=== PATIENT | male | born 1960 | race African-American/Black ===

== ENCOUNTER 2016-09-22 11:19 | Emergency (ER) | payer OTHER ==
[~2016-09-22 11:19] MED LIST: Iopamidol 370 76% 100 ML VIAL ONE
[2016-09-22] MEDS ORDERED: Fentanyl 100 MCG/2 ML VIAL ONE (11:31)
[2016-09-22] MEDS ORDERED: Ondansetron HCl/PF 4 MG/2 ML Vial ONE (11:46)
[2016-09-22] MEDS ORDERED: Lidocaine Viscous Sol 2% 15 ml UD Cup ONE (11:46)
[2016-09-22] MEDS ORDERED: Mag-Al Plus 1200 MG/1200 MG/120 MG/30 ML UDCUP ONE (11:46)
[2016-09-22 11:56] LABS: #Basophils 0.1 thou/uL (0.0-0.2); #Eosinphils 0.1 thou/uL (0.0-0.7); #Monocytes 0.4 thou/uL (0.11-0.59); #Neutrophils 4.3 thou/uL (1.40-6.50); %Basophils 1.3 % (0.0-1.0); %Eosinophils 0.7 % (0.0-10.0); %Lymphocytes 29.4 % (21.0-51.0); %Monocytes 6.4 % (0.0-10.0); %Neutrophils 62.3 % (42.0-75.0); Hemoglobin 14.9 g/dL (14.0-18.0); Mean Corpuscular Hemoglobin 28.2 pg (27.0-31.0); Mean Corpuscular Volume 88.1 fl (80.0-94.0); Mean Platelet Volume 6.9 fL (7.4-10.4); Platelet Count 292 thou/uL (130-400); RBC Distribution Width 14.6 % (11.5-14.5); Red Blood Cell (RBC) Count 5.29 mill/uL (4.70-6.10)
[2016-09-22] MEDS ORDERED: Promethazine HCl 25 MG/ML VIAL ONE (11:56)
[2016-09-22 11:57] LABS: ALT (SGPT) 15 U/L (8-55); AST (SGOT) 10 U/L (5-34); Albumin 3.5 g/dL (3.5-5.0); Alkaline Phosphatase 58 U/L (40-150); Anion Gap 15 mmol/L (10-20); BUN (Urea Nitrogen) 14 mg/dL (8.4-25.7); Bilirubin, Total 0.7 mg/dL (0.2-1.2); CKMB 1.8 ng/mL (0-6.6); Calc. Creatinine Clearance 0 mL/min (70-130); Calcium 8.6 mg/dL (7.8-10.44); Carbon Dioxide 21 mmol/L (22-29); Chloride 109 mmol/L (98-107); Estimated GFR-MDRD 75; Globulin 3.2 g/dL (2.4-3.5); Glucose 120 mg/dL (70-105); Lipase 5 U/L (8-78); Potassium 3.9 mmol/L (3.5-5.1); Protein, Total 6.7 g/dL (6.0-8.3); Sodium 141 mmol/L (136-145); Troponin I 0.013 ng/mL (< 0.028)
--- NOTE | 2016-09-22 21:51 | CT ---
CT ABDOMEN AND PELVIS WITH CONTRAST 09/22/[address] of the abdomen and pelvis was done for evaluation of periumbilical pain. Axial slices were acquired after giving IV contrast. No oral contrast was given. The lung bases are clear. The liver, spleen, pancreas, gallbladder, adrenal glands, kidneys, and abd ominal aorta all appeared normal. There is no distention of bowel to suggest obstruction. At most, one might wonder about some slight thickening of some of the loops of proximal jejunum, but this is a marginal finding at best. This co uld be normal in this patient or could be a sign of mild enteritis. No inflammatory changes are seen around bowel. No free air or free fluid was seen. CT of the pelvis shows no pelvic masses, fluid collections or inflammatory changes. Degenerative joe nges are seen in the lumbar spine which become increasing severe inferiorly. The last few disc level s are degenerated and have some disc osteophyte complex findings. IMPRESSION: No definite acute findings. At most, perhaps minimal prominence of the fold/wall thickness of a few loops of proximal jejunum, a nonspecific finding. POS: HOME
== END 2016-09-22 14:03 | disposition home or self-care (01) ==
LOC: BURERS 11:19
DX: R10.33 Periumbilical pain (principal); I10 Essential (primary) hypertension
CPT/HCPCS: 36416; 74177; 80053; 82553; 83605; 83690; 84484; 85025; 93005; 96365; 96375; 36415-59; J2405; J2550; J3010

== ENCOUNTER 2017-03-29 13:37 | Emergency (ER) | payer OTHER | END 2017-03-29 14:15 | disposition home or self-care (01) | LOC: BURERS 13:37 | DX: M25.561 Pain in right knee (principal); G89.29 Other chronic pain; I10 Essential (primary) hypertension; F20.9 Schizophrenia, unspecified | CPT/HCPCS: 99283 ==

== ENCOUNTER 2020-03-18 16:10 | Emergency (ER) | payer OTHER ==
[2020-03-18] MEDS ORDERED: Diazepam 10 MG/2 ML SYRINGE ONE (16:57)
[2020-03-18] MEDS ORDERED: Ondansetron PF 4 MG/2 ML Vial ONE (16:58)
[2020-03-18] MEDS ORDERED: Morphine 4 MG/ML VIAL ONE (16:58)
[2020-03-18 17:23] LABS: #Basophils 0.1 thou/uL (0.0-0.2); #Lymphocytes 2.2 thou/uL (1.20-3.40); #Monocytes 0.9 thou/uL (0.11-0.59); #Neutrophils 6.8 thou/uL (1.40-6.50); %Basophils 1.2 % (0.0-1.0); %Lymphocytes 21.9 % (21.0-51.0); %Monocytes 9.1 % (0.0-10.0); %Neutrophils 67.8 % (42.0-75.0); Hemoglobin 15.8 g/dL (14.0-18.0); Mean Corpuscular HGB CONC 31.8 g/dL (32.0-36.0); Mean Corpuscular Volume 88.2 fL (78.0-98.0); Mean Platelet Volume 8.4 fL (7.4-10.4); Platelet Count 247 thou/uL (130-400); RBC Distribution Width 13.6 % (11.5-14.5); Red Blood Cell (RBC) Count 5.65 mill/uL (4.70-6.10)
[2020-03-18 17:26] LABS: ALT (SGPT) 24 U/L (8-55); AST (SGOT) 13 U/L (5-34); Albumin 4.3 g/dL (3.5-5.0); Alkaline Phosphatase 67 U/L (40-110); Anion Gap 17 mmol/L (10-20); BUN (Urea Nitrogen) 14 mg/dL (8.4-25.7); Bilirubin, Total 1.1 mg/dL (0.2-1.2); CK (CPK) 239 U/L (30-200); Calc. Creatinine Clearance 0 mL/min (70-130); Calcium 9.2 mg/dL (7.8-10.44); Carbon Dioxide 27 mmol/L (22-29); Chloride 99 mmol/L (98-107); Globulin 4.1 g/dL (2.4-3.5); Glucose 105 mg/dL (70-105); Lipase 41 U/L (8-78); Potassium 3.4 mmol/L (3.5-5.1); Protein, Total 8.4 g/dL (6.0-8.3); Sodium 140 mmol/L (136-145)
[2020-03-18 17:42] LABS: CKMB 2.9 ng/mL (0-6.6)
[2020-03-18] MEDS ORDERED: Nitroglycerin 0.4 MG TAB 1 EACH ONE (17:48)
[2020-03-18] MEDS ORDERED: Phentolamine Mesylate 5 MG VIAL ONE (18:42)
[2020-03-18] MEDS ORDERED: Aspirin Chewable 81 MG TAB ONE (18:42)
[2020-03-18] MEDS ORDERED: Lorazepam 2 MG/ML VIAL ONE (18:48)
[2020-03-18] MEDS ORDERED: niCARdipine 20MG In NaCl 20 MG/200 ML BAG ONE (19:03)
--- NOTE | 2020-03-18 19:40 | CT ---
CTA AORTIC DISSECTION WITH CONTRAST: Date: 03-18-[address] of the chest, abdomen and pelvis was done after a bolus of IV contrast using an aortic diss ection protocol. This scan covered the area from the lung apices through the bifurcation of the aorta and bifurcation of the iliac arteries. FINDINGS: CT THORAX There is moderate opacification of the thoracic aorta and good opacification of the abdominal aorta a nd iliac arteries. There is no sign of aortic dissection or aneurysm at any level. There is good opac ification of the pulmonary arteries with no filling defects to suggest emboli. Some coronary artery c alcifications are noted in the chest. No mediastinal mass or adenopathy was seen. Some calcified subc arinal nodes are evident. The lungs are clear with no acute infiltrate or effusions seen, aside from some dependent atelectasis. CT OF THE ABDOMEN AND PELVIS: No sign of dissection or aneurysm in the aorta. There does appear to be some stenosis due to plaque a t the origin of the celiac artery. The SMA and EVY both fill normally. A little bit of plaque is seen at the origin of the left renal artery, but there is probably not much stenosis here. The iliac dinorah johnathon fill well, though there is plaque in each of them. The bifurcation of each iliac artery into int ernal and external segments was unremarkable. The liver, spleen, pancreas, adrenal glands, kidneys, and gallbladder were unremarkable in appearance . The visualized portions of bowel showed no distention, wall thickening, or inflammatory changes. No free air or free fluid was seen in the areas scanned. There are extensive degenerative changes in the lumbar spine. Especially at L5-S1, there is some mode rate central canal stenosis due to a little central bulging of the disc plus ligamentous and facet hy pertrophy. IMPRESSION: 1. No evidence of aortic dissection or aneurysm. 2. No evidence of pulmonary embolism. 3. Lungs clear. 4. Coronary arterial sclerosis. 5. 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 6. Degenerative change in the lumbar spine with spinal stenosis evident, particularly at L5-S1. Findings called to Dr. Mueller at 1810 on 03-18-2020. POS: HOME
== END 2020-03-18 19:18 | disposition short-term general hospital (02) ==
LOC: BURERS 16:10
DX: I16.1 Hypertensive emergency (principal); F14.10 Cocaine abuse, uncomplicated; R77.8 Other specified abnormalities of plasma proteins; I10 Essential (primary) hypertension
CPT/HCPCS: 36415; 71275; 74174; 80053; 82550; 82553; 83690; 84484; 85025; 93005; 96374; 96375; J2060; J2270; J2405; J2760; J3360; Q9967

== ENCOUNTER 2023-03-01 11:59 | Emergency (ER) | payer OTHER ==
[2023-03-01] MEDS ORDERED: Iopamidol 370 76% 100 ML VIAL ONE (12:05)
[2023-03-01 12:24] LABS: #Basophils 0.1 thou/uL (0.0-0.2); #Eosinphils 0.2 thou/uL (0.0-0.7); #Lymphocytes 2.4 thou/uL (1.20-3.40); #Monocytes 0.5 thou/uL (0.11-0.59); #Neutrophils 3.2 thou/uL (1.40-6.50); %Basophils 1.2 % (0.0-1.0); %Eosinophils 3.6 % (0.0-10.0); %Lymphocytes 36.8 % (21.0-51.0); %Monocytes 8.2 % (0.0-10.0); %Neutrophils 50.1 % (42.0-75.0); Hematocrit 32.5 % (42.0-52.0); Hemoglobin 10.6 g/dL (14.0-18.0); Mean Corpuscular HGB CONC 32.6 g/dL (32.0-36.0); Mean Corpuscular Hemoglobin 28.1 pg (27.0-31.0); Mean Corpuscular Volume 86.1 fl (78.0-98.0); Mean Platelet Volume 5.7 fL (7.4-10.4); Platelet Count 498 10x3/uL (130-400); RBC Distribution Width 12.9 % (11.5-14.5); Red Blood Cell (RBC) Count 3.77 mill/uL (4.70-6.10); White Blood Cell (WBC) Count 6.4 10x3/uL (4.8-10.8)
[2023-03-01 12:37] LABS: ALT (SGPT) 13 U/L (8-55); AST (SGOT) 11 U/L (5-34); Albumin 3.3 g/dL (3.4-4.8); Alkaline Phosphatase 63 U/L (40-110); Anion Gap 13 mmol/L (10-20); BUN (Urea Nitrogen) 9 mg/dL (8.4-25.7); Bilirubin, Total 0.5 mg/dL (0.2-1.2); Calc. Creatinine Clearance 0 mL/min (70-130); Calcium 8.3 mg/dL (7.8-10.44); Carbon Dioxide 23 mmol/L (23-31); Chloride 106 mmol/L (98-107); Estimated GFR 91; Globulin 3.6 g/dL (2.4-3.5); Glucose 109 mg/dL (80-115); Potassium 3.6 mmol/L (3.5-5.1); Protein, Total 6.9 g/dL (5.8-8.1); Sodium 138 mmol/L (136-145)
[2023-03-01 12:39] LABS: Troponin I 0.048 ng/mL (< 0.028)
[2023-03-01] MEDS ORDERED: Aspirin Chewable 81 MG TAB ONE (14:04)
[2023-03-01] MEDS ORDERED: Nitroglycerin 2% Ointment 1 INCH/1 GM Packet ONE (14:10)
[2023-03-01] MEDS ORDERED: fentaNYL 50 mcg/mL 1 mL Vial ONE (14:27)
[2023-03-01 14:54] LABS: Amphetamine Not Detected (NotDetected); Barbiturates Screen Not Detected (NotDetected); Benzodiazepine Screen Not Detected (NotDetected); Cocaine Metabolite Screen Not Detected (NotDetected); Methadone Not Detected (NotDetected); Methamphetamine Not Detected (NotDetected); Opiate Screen Not Detected (NotDetected); Oxycodone Screen Not Detected (NotDetected); Phencyclidine (PCP) Not Detected (NotDetected); THC/Cannabinoid Screen Not Detected (NotDetected); Tricyclic Screen Not Detected (NotDetected)
== END 2023-03-01 16:00 | disposition short-term general hospital (02) ==
LOC: BURERS 11:59
DX: R07.9 Chest pain, unspecified (principal); I10 Essential (primary) hypertension
CPT/HCPCS: 36415; 71045; 71275; 80053; 80306; 84484; 85025; 85379; 87804; 93005; 96374; J3010; Q9967